=== PATIENT | female | born 1945 | race Caucasian/White ===

== ENCOUNTER 2016-06-15 13:06 | Outpatient (CLI) | payer MEDICARE | END 2016-06-15 13:07 | disposition home or self-care (01) | DX: Z12.31 Encounter for screening mammogram for malignant neoplasm of breast (principal); N63 Unspecified lump in breast ==

== ENCOUNTER 2016-06-15 13:07 | Outpatient (CLI) | payer MEDICARE | END 2016-06-15 13:08 | disposition home or self-care (01) | DX: K40.90 Unilateral inguinal hernia, without obstruction or gangrene, not specified as recurrent (principal) ==

== ENCOUNTER 2016-07-08 12:32 | Outpatient (CLI) | payer MEDICARE | END 2016-07-08 12:33 | disposition home or self-care (01) | DX: N63 Unspecified lump in breast (principal) | CPT/HCPCS: 76642; G0206 ==

== ENCOUNTER 2016-07-15 10:29 | Outpatient (CLI) | payer MEDICARE ==
[2016-07-15] MEDS ORDERED: BUPIVACAINE 0.5%-EPI 1:200000 PF 30 ML VIAL SUBQ ONE (13:02)
[2016-07-15] MEDS ORDERED: BUFFERED LIDOCAINE 10 ML SYRINGE IU ONE (13:02)
== END 2016-07-15 10:30 | disposition home or self-care (01) ==
DX: C50.211 Malignant neoplasm of upper-inner quadrant of right female breast (principal); Z17.0 Estrogen receptor positive status [ER+]
CPT/HCPCS: 19083; G0206

== ENCOUNTER 2016-08-05 15:08 | Outpatient (CLI) | payer MEDICARE | END 2016-08-05 15:09 | disposition home or self-care (01) | DX: C50.919 Malignant neoplasm of unspecified site of unspecified female breast (principal) ==

== ENCOUNTER 2016-08-05 15:15 | Outpatient (CLI) | payer MEDICARE | END 2016-08-05 15:16 | disposition home or self-care (01) | LOC: RT 15:15 | PROVIDERS: ATTEND Nurse Anesthetist, Certified Registered | DX: Z01.818 Encounter for other preprocedural examination (principal); C50.919 Malignant neoplasm of unspecified site of unspecified female breast | CPT/HCPCS: 80048; 85025; 85730; 93005 ==

== ENCOUNTER 2016-08-10 08:51 | Day surgery (SDC) | payer MEDICARE ==
[2016-08-10] MEDS ORDERED: SODIUM CHLORIDE 0.9% 1,000 ML IV ONE (10:36)
[2016-08-10] MEDS ORDERED: ceFAZolin 1 GM VIAL ONE (10:45)
--- NOTE | 2016-08-10 13:05 | Nuclear Medicine Report ---
RIGHT BREAST INJECTION FOR SENTINEL LYMPH NODE: 08/10/2016 CLINICAL INDICATION: Right breast cancer. FINDINGS: 1 mCi of technetium-99m filtered Sulfur Colloid in 4 mL of buffered lidocaine was injected subareolarly into the right breast. Anterior imaging demonstrates right axillary uptake. IMPRESSION: SUCCESSFUL RIGHT BREAST INJECTION FOR SENTINEL LYMPH NODE IDENTIFICATION. JOB #: [id number] EXT JOB #:[id number]
[2016-08-10] MEDS ORDERED: BUFFERED LIDOCAINE 10 ML SYRINGE IU ONE ×2 (13:07)
[2016-08-10] MEDS ORDERED: BUPIVACAINE 0.5%-EPI 1:200000 PF 30 ML VIAL SUBQ ONE ×3 (13:07→15:12)
[2016-08-10] MEDS ORDERED: METHYLENE BLUE 100 MG/10 ML VIAL IVP ONE (13:49)
[2016-08-10] MEDS ORDERED: fentaNYL 100 MCG/2 ML VIAL IVP ONE (14:00)
[2016-08-10] MEDS ORDERED: ePHEDrine 50 MG/ML AMP IVP ONE (14:00)
[2016-08-10] MEDS ORDERED: PROPOFOL 200 MG/20 ML VIAL IVP ONE (14:00)
[2016-08-10] MEDS ORDERED: MIDAZOLAM 2 MG/2 ML VIAL IVP ONE (14:00)
[2016-08-10] MEDS ORDERED: SUCCINYLCHOLINE 200 MG/10 ML VIAL IVP ONE (14:00)
[2016-08-10] MEDS ORDERED: LIDOCAINE-MPF 2% 5 ML VIAL IM ONE (14:00)
[2016-08-10] MEDS ORDERED: ONDANSETRON 4 MG/2 ML VIAL IVP ONE (14:00)
[2016-08-10] MEDS ORDERED: LACTATED RINGERS 1,000 ML IV ONE (15:09)
[2016-08-10] MEDS: fentaNYL 100 MCG/2 ML VIAL ONE ×3 (15:23→15:38)
[2016-08-10 16:02] VITALS: BP 117/72
--- NOTE | 2016-08-10 16:38 | Mammography Report ---
REVISED: THIS REPORT WAS ORIGINALLY SIGNED ON 08/11/2016 @ 0800 ORDERS LINKED ON 09/01/2016 MAMMOGRAPHICALLY GUIDED WIRE LOCALIZATION RIGHT BREAST: 08/10/2016 CLINICAL INDICATION: Biopsy-proven right breast cancer 12 o'clock position. FINDINGS: Informed consent was obtained. Using standard aseptic technique, both 1% buffered lidocaine and Sensorcaine were injected into the right breast for local anesthesia. Under mammographic guidance, a 5 cm Hoyt needle was placed at the site of mammographic concern. Two mammographic views were obtained to confirm the position of the needle in relation to the target lesion. The needle was secured and the patient was sent to the operating room in stable condition. SPECIMEN RADIOGRAPH: A magnified view of the breast biopsy specimen demonstrates that the wire, nodule and marker are contained within the specimen , at G5. Dr. Rizo was informed by telephone. IMPRESSION: RIGHT MAMMOGRAPHICALLY GUIDED WIRE LOCALIZATION. PATHOLOGY REPORT PENDING. JOB #: [id number] EXT JOB #: [id number] [place]
--- NOTE | 2016-08-27 12:45 | OPERATIVE REPORT ---
DATE OF SURGERY: 08/11/2016 00:00:00 PREOPERATIVE DIAGNOSIS: right breast cancer POSTOPERATIVE DIAGNOSIS: right breast cancer NAME OF PROCEDURE: [place] lymph node biopsy and right needle localization partial mastectomy. SURGEON: Raven Rizo MD INDICATION FOR PROCEDURE: This is a 70-year-old female diagnosed with invasive breast cancer. FINDINGS: After obtaining informed consent from the patient, she was brought into the operating room and positioned on the operating table in a supine position, taking note of pressure points. She was intubated by Anesthesia. Perioperative antibiotics were administered. A time-out was taken according to protocol. 5 cc of methylene blue was administered in the periareolar region and the breast massaged for 5 minutes. She was prepped and draped in the usual sterile fashion. A right axillary incision was created and deepened down through the clavipectoral fascia into the axillary space. Using the Neoprobe, 2 sentinel lymph nodes were identified. These were excised from surrounding fatty tissue, taking care to avoid axillary structures. One was noted to be blue, but both were noted to be highly positive with the Neoprobe. These were passed off as specimens. The axillary incision was packed. Attention was then turned to the right breast. An elliptical incision was created near the insertion needle. This was deepened down along the track of the insertion needle creating skin flaps and dissecting around the needle circumferentially. Care was taken to ensure adequate distance from the finder needle. The lumpectomy specimen was completely excised from the surrounding breast tissue. It was marked and then passed off as a specimen. The incision was packed. Both incisions were checked for signs of bleeding and hemostasis was noted to be achieved. Both incisions were irrigated. The axillary incision was then closed with 3-0 Vicryl and 4-0 Monocryl. The breast incision was closed similarly. Prior to completion of the procedure, mammographic confirmation of the clip, lesion and wire was performed. ESTIMATED BLOOD LOSS: Minimal. COMPLICATIONS: None. SPECIMEN: [place] lymph nodes and right breast tissue. JOB #: [id number] EXT JOB #:[id number] [place]
== END 2016-08-10 08:52 | disposition home or self-care (01) ==
LOC: SDS 08:51
PROVIDERS: ATTEND Surgery
PROC: C71L1ZZ Planar Nuclear Medicine Imaging of Upper Chest Lymphatics using Technetium 99m (Tc-99m) (ICD-10-PCS; 2016-08-10)
PROC: 0HBT0ZZ Excision of Right Breast, Open Approach (ICD-10-PCS; principal; 2016-08-10 12:30)
PROC: 07B50ZX Excision of Right Axillary Lymphatic, Open Approach, Diagnostic (ICD-10-PCS; 2016-08-10 12:30)
DX: C50.811 Malignant neoplasm of overlapping sites of right female breast (principal); Z17.0 Estrogen receptor positive status [ER+]; F17.210 Nicotine dependence, cigarettes, uncomplicated; M10.9 Gout, unspecified; N18.4 Chronic kidney disease, stage 4 (severe); Z90.710 Acquired absence of both cervix and uterus; Z82.49 Family history of ischemic heart disease and other diseases of the circulatory system; I48.0 Paroxysmal atrial fibrillation
CPT/HCPCS: 19281; 19301; 38525; 76098; 78195; 88307; A9541; J7120